=== PATIENT | male | born 2000 ===

== ENCOUNTER 2020-10-18 07:00 | Outpatient (CLI) | payer OTHER ==
--- NOTE | 2020-10-18 12:52 | XRAY Report ---
PROCEDURE: Foot 3 View LT INDICATIONS: CONTUSION OF L FOOT TECHNIQUE: 3 views of the foot were acquired. COMPARISON: None FINDINGS: Bones: There is mild to moderate hallux valgus and mild pes planus with weightbearing. Calcaneal pit ch angle measures 15 degrees. no fractures or dislocations. No suspicious bony lesions. Soft tissues: No tibiotalar joint effusion. Achilles tendon appears normal. IMPRESSION: Mild to moderate hallux valgus and mild pes planus with weightbearing. No left foot fracture or dislo cation. Reviewed by: Karan Roy MD on 10/18/2020 12:50 PM PDT Approved by: Karan Roy MD on 10/18/2020 12:50 PM PDT Station ID: [id number]
== END 2020-10-18 23:59 | disposition home or self-care (01) ==
LOC: DI.N 07:00
PROVIDERS: ATTEND Emergency Medicine
DX: S90.32XA Contusion of left foot, initial encounter (principal); M20.12 Hallux valgus (acquired), left foot; M21.42 Flat foot [pes planus] (acquired), left foot

== ENCOUNTER 2022-02-21 09:16 | Outpatient (CLI) | payer OTHER ==
--- NOTE | 2022-02-21 15:09 | MRI Report ---
PROCEDURE: WRIST WO - LT INDICATIONS: WRIST PAIN TECHNIQUE: Noncontrast coronal proton density fast spin echo and T2 fast spin echo with fat saturation; coronal 3-D gradient echo, axial T1 spin echo and T2 fast spin echo with fat saturation, sagittal T1 spin ech o through the wrist. COMPARISON: None. FINDINGS: Image quality: Excellent. Bones and cartilage: The carpal bones are normally aligned. No bone marrow contusions or fractures. No evidence for avascular necrosis. Overlying cartilage surfaces appear normal. Carpal ligaments: The scapholunate and lunotriquetral ligaments appear intact. In the absence of in tra-articular contrast, the extrinsic carpal ligaments are not well identified. On sagittal images, the pisohamate ligament appears intact. Triangular fibrocartilage complex: The triangular fibrocartilage appears intact. The adjacent menis nayely homolog appears normal in the absence of intra-articular contrast. The extensor carpi ulnaris te ndon is normal in location and morphology. Tendons and soft tissues: There is nonvisualization of extensor pollicis longus tendon at the level of Kristie's tubercle concerning for tendon rupture. The carpal tunnel structures appear normal, inclu ding the median nerve. The ulnar nerve appears normal within Guyon's canal. Rest of the extensor ten don compartments demonstrate normal morphology, without pathologic tendon sheath fluid. No soft tiss ue ganglion cysts. IMPRESSION: 1. Nonvisualization of extensor pollicis longus tendon at the level of Kristie's tubercle concerning f or tendon rupture suggest clinical correlation. No other tendon abnormality is seen. 2. No marrow edema. No fracture or dislocation. No suspicious intraosseous lesions. 3. Intrinsic and extrinsic wrist ligaments are intact. 4. [place] of fibrocartilage complex is intact. Reviewed by: Karan Roy MD on 02/21/2022 3:07 PM PST Approved by: Karan Roy MD on 02/21/2022 3:07 PM PST Station ID: [id number]
== END 2022-02-21 09:17 | disposition home or self-care (01) ==
LOC: DI 09:16
DX: M25.532 Pain in left wrist (principal)

== ENCOUNTER 2022-03-18 17:43 | Emergency (ER) | payer OTHER ==
[2022-03-18 18:05] VITALS: BP 124/56
--- NOTE | 2022-03-18 21:08 | XRAY Report ---
PROCEDURE: Foot 3 View LT INDICATIONS: pain heel, uncertain injury TECHNIQUE: 3 views of the foot were acquired. COMPARISON: 10/18/2020 FINDINGS: Bones: No fractures or dislocations. No suspicious bony lesions. Soft tissues: No tibiotalar joint effusion. Achilles tendon appears normal. IMPRESSION: 1. No fracture or dislocation. Reviewed by: Reji Fry MD on 03/18/2022 9:06 PM [facility] Approved by: Reji Fry MD on 03/18/2022 9:06 PM [facility] Station ID: [id number]
--- NOTE | 2022-03-18 21:25 | ED Physician Documentation ---
History of Present Illness - Stated complaint Stated Complaint: LT FOOT INJ - Chief complaint Chief Complaint: Ext Problem - History obtained from History obtained from: Patient, Family - History of Present Illness Timing: How many days ago (2) Pain level max: 5 Pain level now: 5 - Additonal information Additional information: Patient is a 21-year-old male who presents to the emergency department complaining of left great toe pain as well as left Achilles tendon pain. These both started after a 50 km race 2 days ago. Worse with movement, better with rest. No fevers. No chills. Does not recall any specific injuries. Review of Systems Constitutional: denies: Fever, Chills GI: denies: Nausea, Vomiting, Diarrhea Skin: denies: Rash PD PAST MEDICAL HISTORY - Past Medical History Past Medical History: No - Past Surgical History Past Surgical History: No - Allergies Allergies/Adverse Reactions: Allergies Allergy/AdvReac Type Severity Reaction Status Date / Time No Known Drug Allergies Allergy Verified 03/18/22 18:05 - Living Situation Living Situation: reports: With family Living Arrangement: reports: At home - Social History Does the pt smoke?: No Does the pt have substance abuse?: No - Family History Family history: reports: Non contributory PD ED PE NORMAL - Vitals Vital signs reviewed: Yes - General General: Alert and oriented X 3, No acute distress, Well developed/nourished - HEENT HEENT: Moist mucous membranes - Respiratory Respiratory: No respiratory distress - Derm Derm: Warm and dry - Extremities Extremities: Other (L foot/ankle - Mild tenderness near the insertion of the Achilles tendon. No significant pain with dorsiflexion of the foot. Neurovascularly intact. No significant pain up higher in the calf. The left great toe has pus underneath the toenail. No lacerations.) - Neuro Neuro: Alert and oriented X 3 Results - Vitals Vitals: Vital Signs - 24 hr 03/18/22 18:01 Temperature 36.0 C L Heart Rate 58 L Respiratory 16 Rate Blood Pressure 124/56 L O2 Saturation 100 Oxygen O2 Source Room air - Rads (name of study) Left foot x-ray Radiology: Final report received, See rad report (No acute abnormality) Procedures - General procedure General procedure: 1% lidocaine was used to anesthetize the toe in a digital block. Electrocautery was then used to trephinate the nail relieving the pus trapped underneath. Patient tolerated well. Bandage applied. No complications. Neurovascular intact PD MEDICAL DECISION MAKING - ED course Complexity details: reviewed results, re-evaluated patient, considered differential, d/w patient ED course: 21-year-old male with what appears to be a mild Achilles tendinitis. Placed on crutches and in a walking boot. Also has a subungual abscess, this was drained. Tolerated well. We will have the patient follow-up with his PCM for further care. Patient counseled regarding signs and symptoms for which I believe and urgent re-evaluation would be necessary. Patient with good understanding of and agreement to plan and is comfortable going home at this time This document was made in part using voice recognition software. While efforts are made to proofread this document, sound alike and grammatical errors may occur. Departure - Departure Disposition: 01 Home, Self Care Clinical Impression: Achilles tendinitis of left lower extremity Subungual abscess of toe Qualifiers: Laterality: left Qualified Code(s): L03.032 - Cellulitis of left toe Condition: Good Instructions: Achilles Tendonitis, ED Hematoma Subungual Follow-Up: ANA SINGH III, MD [Primary Care Provider] - Within 1 week Comments: Soak the left great toenail in warm water 2-3 times daily. We have given you a walking boot to help rest your Achilles tendon. You were also given crutches. You can use Motrin or Aleve as needed for pain. Please follow-up with your doctor for repeat evaluation within 1 week. Return if you worsen. Your x-rays do not show any acute abnormalities. Forms: Activity restrictions Discharge Date/Time: 03/18/22 21:54
== END 2022-03-18 21:54 | disposition home or self-care (01) ==
LOC: ED 17:43
DX: L03.032 Cellulitis of left toe (principal); M76.62 Achilles tendinitis, left leg
CPT/HCPCS: 11740; 99282; 99283

== ENCOUNTER 2022-04-23 14:39 | Outpatient (CLI) | payer OTHER ==
--- NOTE | 2022-04-23 14:09 | XRAY Report ---
PROCEDURE: Wrist 3 View LT INDICATIONS: LEFT WRIST PAIN TECHNIQUE: 3 views of the wrist were acquired. COMPARISON: None FINDINGS: Bones: No fractures or dislocations. No suspicious bony lesions. Soft tissues: No suspicious soft tissue calcifications. IMPRESSION: Normal left wrist Reviewed by: Pio Grijalva on 04/23/2022 2:07 PM [facility] Approved by: Pio Grijalva on 04/23/2022 2:07 PM [facility] Station ID: [id number]
== END 2022-04-23 14:40 | disposition home or self-care (01) ==
LOC: DI.WOS 14:39
PROVIDERS: ATTEND Orthopaedic Surgery
DX: M25.532 Pain in left wrist (principal)

== ENCOUNTER 2022-06-05 09:21 | Day surgery (SDC) | payer OTHER ==
[2022-06-05] MEDS ORDERED: LIDOCAINE MPF 2%-EPI 1:200000 20 ML VIAL ONE (09:50)
[2022-06-05] MEDS ORDERED: BUPIVACAINE 0.5% PF 30 ML VIAL ONE (09:51)
[2022-06-05] MEDS ORDERED: CELECOXIB 100 MG CAPSULE PO ONE (09:51)
--- NOTE | 2022-06-05 09:51 | ANESTHESIA ---
Pre-Anesthesia VS, & Labs - Diagnosis L wrist ganglion cyst - Procedure excision L wrist ganglion cyst Height: 6 ft 1 in - NPO >8 hours Home Medications and Allergies Home Medications: Ambulatory Orders No Known Home Medications 05/30/22 No Known Home Medications 05/30/22 Allergies/Adverse Reactions: Allergies Allergy/AdvReac Type Severity Reaction Status Date / Time No Known Drug Allergies Allergy Verified 06/05/22 09:50 Anes History & Medical History - Anesthetic History Anesthesia Complications: reports: No previous complications Family history of Anesthesia Complications: Denies Family history of Malignant Hyperthermia: Denies - Medical History Cardiovascular: reports: None Pulmonary: reports: None Gastrointestinal: reports: None Urinary: reports: None Musculoskeletal: reports: None Endocrine/Autoimmune: reports: None Skin: reports: None Exam General: Alert, Oriented x3, Cooperative Dental: WNL Mouth Openin Fingerbreadth Neck Mobility: Normal Mallampati classification: II Respiratory: Lungs clear, Normal breath sounds, No respiratory distress Cardiovascular: Regular rate Neurological: Normal speech Mental/Cognitive Status: Alert/Oriented X3, Normal for patient Cognitive Status: Within normal limits Plan Anesthesia Type: General Consent for Procedure(s) Verified and Reviewed: Yes Code Status: Attempt Resuscitation ASA classification: 1-Healthy patient Is this case an emergency?: No
[2022-06-05] MEDS ORDERED: ACETAMINOPHEN 500 MG TABLET PO ONE (09:52)
[2022-06-05] MEDS ORDERED: MIDAZOLAM 2 MG/2 ML VIAL ONE (09:54)
[2022-06-05] MEDS ORDERED: fentaNYL 100 MCG/2 ML VIAL ONE (09:54)
[2022-06-05] MEDS ORDERED: LIDOCAINE-PF 2% 10 ML AMP SUBQ ONE (09:55)
[2022-06-05] MEDS ORDERED: LACTATED RINGERS 1,000 ML IV ONE ×2 (09:58→12:35)
[2022-06-05] MEDS ORDERED: PROPOFOL 200 MG/20 ML VIAL IVP ONE ×2 (10:01→11:55)
[2022-06-05] MEDS ORDERED: ONDANSETRON 4 MG/2 ML VIAL IVP PRN (11:16)
[2022-06-05] MEDS ORDERED: MORPHINE 2 MG/ML CARPUJECT IVP PRN (11:16)
[2022-06-05] MEDS ORDERED: ePHEDrine 50 MG/ML VIAL IVP PRN (11:16)
[2022-06-05] MEDS ORDERED: METOCLOPRAMIDE 10 MG/2 ML VIAL IVP PRN (11:16)
[2022-06-05] MEDS ORDERED: fentaNYL 100 MCG/2 ML VIAL IVP PRN (11:16)
[2022-06-05] MEDS ORDERED: NALOXONE 0.4 MG/ML VIAL IVP PRN (11:16)
[2022-06-05] MEDS ORDERED: ATROPINE ABBOJECT 1 MG/10 ML SYRINGE IVP PRN (11:16)
[2022-06-05] MEDS ORDERED: HYDROmorphone 0.5 MG/0.5 ML SYRINGE IVP PRN (11:16)
[2022-06-05] MEDS ORDERED: KETOROLAC 30 MG/ML VIAL ONE (11:55)
[2022-06-05] MEDS ORDERED: DEXAMETHASONE 4 MG/ML VIAL ONE (11:55)
[2022-06-05] MEDS ORDERED: ONDANSETRON 4 MG/2 ML VIAL ONE (11:55)
[2022-06-05] MEDS ORDERED: BUPIVACAINE 0.5% PF 30 ML VIAL INFIL ONE ×2 (11:58)
[2022-06-05] MEDS ORDERED: LIDOCAINE 2%-EPI 1:100000 20 ML MDV SUBQ ONE ×2 (11:58)
[2022-06-05] MEDS ORDERED: LACTATED RINGERS 1,000 ML IV SCH (12:00)
--- NOTE | 2022-06-05 12:28 | OPERATIVE REPORT ---
Operative Report - General Procedure Date: 06/05/22 Planned Procedure: Excision dorsal wrist ganglion left wrist Pre-Op Diagnosis: Dorsal ganglion cyst left wrist Procedure Performed: Excision of dorsal ganglion cyst left wrist Post Op Diagnosis: Same as preoperative diagnosis - Procedure Note Primary Surgeon: Randell Cardenas MD Secondary Surgeon: Brittany VALDEZ Anesthesia Provider: Dwayne Ridley CRNA Anesthesia Technique: General LMA Pathology: Dorsal wrist cystic mass excised and sent to pathology for further identification. Estimated Blood Loss (mL): 2 Indications: This is a 22-year-old gentleman with a symptomatic dorsal wrist ganglion mass left wrist. He has had this for several months and is tired of living with the discomfort associated with the mass. He is not aware of injury. His examination showed a discrete mass, well localized to the scapholunate area, otherwise normal exam and normal x-ray. Informed consent obtained for excision of mass from left dorsal wrist. Findings: The cystic mass had rather thick medel, typical jelly fluid within the mass, located over the scapholunate area just slightly distal to the extensor pollicis longus and below the extensor carpi radialis. The ulnar border of the mass was the extensor digitorum commonness/indices tendon Complications: None - Other Other Information/Narrative: The patient was brought to the operating room table. He was placed in a supine position with the left arm over arm extension table. The left arm had a tourniquet applied over cast padding. The left upper extremity was prepped and draped in a sterile manner in the usual fashion. A timeout procedure was performed and the entire operating room team were in agreement. A timeout procedure was witnessed by [facility] auditor. The left hand and upper extremity was exsanguinated. The pneumatic tourniquet was elevated to 200 mmHg to the proximal left arm. A transverse incision was centered over the mass. After the skin had been incised, a spreading technique was utilized to identify the very small superficial radial nerve branches. The mass was identified. The extensor carpi radialis longus and extensor pollicis longus tendons were retracted radially while the extensor indices was retracted in an ulnar direction. The mass was excised using tenotomy scissors and electrocautery. Zeiss 3.2X loupe magnification was utilized for the dissection. The dissection was carried out from proximal to distal excising a button of the capsule over the scaphoid lunate area with the mass en bloc. The mass was punctured and there was typical jelly fluid from the cystic mass. The tourniquet was deflated. Tourniquet time 22 minutes. The wound was irrigated. A subcuticular 3-0 Monocryl closure was performed, Dermabond, bulky dressing with [place] wrap. He tolerated procedure well. Local 0.25% Marcaine was infiltrated, 5 cc. A physician fire assistant was medically necessary to help with prepping and draping, positioning, protection of vital structures, assistance during the procedure including wound closure, dressing and/or splinting.
[2022-06-05] MEDS ORDERED: ONDANSETRON ODT 4 MG TABLET TL PRN (12:42)
[2022-06-05] MEDS ORDERED: oxyCODONE 5 MG TABLET PO PRN (12:42)
[2022-06-05] MEDS ORDERED: oxyCODONE 5 MG TABLET ONE (13:30)
[2022-06-05 13:32] VITALS: BP 124/75
--- NOTE | 2022-06-05 13:32 | ANESTHESIA POST OP EVALUATION ---
Anesthesia Post Eval - Post Anesthesia Eval Vitals: Last Vital Signs Temp 36.0 C L 06/05/22 12:59 Pulse 58 L 06/05/22 12:59 Resp 14 06/05/22 12:59 BP 128/82 H 06/05/22 12:59 Pulse Ox 100 06/05/22 12:59 O2 Flow Rate CV Function Including HR & BP: Stable Pain Control: Satisfactory Nausea & Vomiting: Negative Mental Status: Baseline Respiratory Status: Airway Patent Hydration Status: Satisfactory Anesthesia Complications: None
[2022-06-05] MEDS ORDERED: ACETAMINOPHEN 500 MG TABLET PO PRN (16:00)
[2022-06-05] MEDS ORDERED: CELECOXIB 100 MG CAPSULE PO PRN (16:00)
== END 2022-06-05 09:22 | disposition home or self-care (01) ==
LOC: SDS 09:21
PROVIDERS: ATTEND Orthopaedic Surgery
PROC: 0RBP0ZZ Excision of Left Wrist Joint, Open Approach (ICD-10-PCS; principal; 2022-06-05 10:45)
DX: M67.432 Ganglion, left wrist (principal)
CPT/HCPCS: 25111; A9270; J7120